=== PATIENT | male | born 1990 | race Caucasian/White ===

== ENCOUNTER → 2018-10-17 | Outpatient (CLI) | payer OTHER | LOC: M.CT 13:27 | DX: G43.909 Migraine, unspecified, not intractable, without status migrainosus (principal) ==

== ENCOUNTER → 2019-11-25 | Outpatient (CLI) | payer OTHER | LOC: M.RAD 10:34 | DX: M25.511 Pain in right shoulder (principal); M25.512 Pain in left shoulder; G47.30 Sleep apnea, unspecified ==

== ENCOUNTER → 2020-11-28 | Outpatient (CLI) | payer OTHER | LOC: M.RAD 14:09 | PROVIDERS: ATTEND Internal Medicine | DX: M50.90 Cervical disc disorder, unspecified, unspecified cervical region (principal); M54.42 Lumbago with sciatica, left side; G89.29 Other chronic pain ==